=== PATIENT | female | born 1995 | race Caucasian/White ===

== ENCOUNTER 2024-01-25 21:22 | Emergency (ER) | payer SELFPAY ==
[2024-01-25 21:37] VITALS: BP 110/68; PULSE 73; RESP 18; TEMP 98.7; BMI 25.2
[2024-01-25] MEDS ORDERED: ONDANSETRON *ODT* 4 MG TABLET ONE (21:58)
[2024-01-25] MEDS ORDERED: MAG HYDROX/AL HYDROX/SIMETH 30 ML UNIT-DOSE CUP ONE (21:58)
[2024-01-25] MEDS: ONDANSETRON *ODT* 4 MG TABLET SL ONE (22:05)
[2024-01-25] MEDS: MAG HYDROX/AL HYDROX/SIMETH 30 ML UNIT-DOSE CUP PO ONE (22:05)
[2024-01-26 00:02] LABS: HIV INTERPRETATION NEGATIVE (NEGATIVE)
== END 2024-01-25 22:55 | disposition home or self-care (01) ==
LOC: JER 21:22
DX: R11.2 Nausea with vomiting, unspecified (principal); A08.4 Viral intestinal infection, unspecified; Z20.822 Contact with and (suspected) exposure to COVID-19
CPT/HCPCS: 0241U-QW; 36415; 86803; 87389; 99283-25; Q0162